=== PATIENT | female | born 1985 | race Caucasian/White ===

== ENCOUNTER 2016-12-21 14:06 | Emergency (ER) | payer OTHER ==
[~2016-12-21] VITALS: Ht 165.1 cm; Wt 70.0 kg
[2016-12-21] MEDS ORDERED: SODIUM CHLORIDE FLUSH 10ML SYR IVF ONE (14:30)
[2016-12-21 14:53] LABS: HEMOGLOBIN 12.6 g/dL (11.7-16.4)
[2016-12-21 15:06] LABS: BLOOD UREA NITROGEN 13 mg/dL (7-18)
[2016-12-21] MEDS ORDERED: RHOGAM FROM BLOOD BANK 1 NOTE EA IM/IV ONE (15:30)
[2016-12-21 16:23] VITALS: BP 111/73
[2016-12-21 18:25] VITALS: BP 116/70
[2016-12-22] MEDS ORDERED: PANT40TA5 PO (10:45)
[2016-12-22] MEDS ORDERED: HYDR-3150 PO ×2 (20:35→20:36)
== END 2016-12-21 19:24 | disposition home or self-care (01) ==
LOC: ED 14:49
DX: O03.9 Complete or unspecified spontaneous abortion without complication (principal); R33.9 Retention of urine, unspecified
CPT/HCPCS: 36415; 76801; 80048; 81003; 82040; 84702; 85025; 86850; 86900; 99285; J2790

== ENCOUNTER 2016-12-22 09:58 | Observation (INO) | payer OTHER ==
[~2016-12-22] VITALS: Ht 165.1 cm; Wt 71.5 kg
[2016-12-22] MEDS ORDERED: PANT40TA5 PO (10:45)
[2016-12-22 11:10] LABS: HEMOGLOBIN 10.9 g/dL (11.7-16.4)
[2016-12-22 11:21] VITALS: BP 117/74
[2016-12-22] MEDS ORDERED: D5%-LACTATED RINGERS 1,000 ML IV SCH (11:30)
[2016-12-22 13:02] LABS: HCG UR OBC PASS
[2016-12-22] MEDS ORDERED: BUPIVACAINE/PF-EPI 0.5% 1:200K ONE (13:58)
[2016-12-22] MEDS ORDERED: FENTANYL PF 250 MCG/5ML ONE (14:00)
[2016-12-22] MEDS ORDERED: ONDANSETRON 2MG/ML, 2ML ONE (14:20)
[2016-12-22] MEDS ORDERED: DEXAMETHASONE 4 MG/ML, 1ML ONE (14:20)
[2016-12-22] MEDS ORDERED: SUCCINYLCHOLINE 20 MG/ML, 10ML ONE (14:20)
[2016-12-22] MEDS ORDERED: METOCLOPRAMIDE 5 MG/ML, 2ML ONE (14:20)
[2016-12-22] MEDS ORDERED: PROPOFOL 10 MG/ML, 20ML ONE (14:20)
[2016-12-22] MEDS ORDERED: ROCURONIUM 10 MG/ML ONE (14:20)
[2016-12-22] MEDS ORDERED: LIDOCAINE 2% 100MG/5ML SYRINGE ONE (14:20)
[2016-12-22] MEDS ORDERED: CEFAZOLIN 1,000 MG ONE (14:20)
[2016-12-22] MEDS ORDERED: BUPIVACAINE/PF-EPI 0.5% 1:200K INFIL ONE (14:58)
[2016-12-22] MEDS ORDERED: ACETAMINOPHEN 650 MG/20.3 ML UDC ONE (15:49)
[2016-12-22] MEDS ORDERED: HYDROmorphone 2 MG/ML, 1ML ONE (15:49)
[2016-12-22] MEDS ORDERED: ACETAMINOPHEN 325 MG TABLET ONE (15:49)
[2016-12-22] MEDS ORDERED: OXYcodone 5 MG/5 ML ORAL.SOL UDC ONE (15:50)
[2016-12-22] MEDS: HYDROmorphone 1 MG/ML, 1ML IV PRN ×4 (15:55→16:32)
[2016-12-22] MEDS ORDERED: PROMETHAZINE 25 MG/ML, 1ML IV PRN (16:00)
[2016-12-22] MEDS ORDERED: FENTANYL PF 100 MCG/2ML IV PRN (16:00)
[2016-12-22] MEDS ORDERED: MIDAZOLAM 1 MG/ML, 2ML IV PRN (16:00)
[2016-12-22] MEDS ORDERED: MEPERIDINE/PF 25MG/0.5ML IVPush PRN (16:00)
[2016-12-22] MEDS ORDERED: ONDANSETRON 2MG/ML, 2ML IVPush PRN (16:00)
[2016-12-22] MEDS ORDERED: OXYcodone 5 MG/5 ML ORAL.SOL UDC PO PRN (16:00)
[2016-12-22] MEDS ORDERED: PROMETHAZINE 25 MG/ML, 1ML IM PRN (18:00)
[2016-12-22] MEDS ORDERED: MORPHINE SULFATE 4 MG/ML, 1ML IVPush PRN (18:00)
[2016-12-22 20:00] VITALS: BP 99/55
[2016-12-22] MEDS ORDERED: HYDR-3150 PO ×2 (20:35→20:36)
== END 2016-12-22 21:30 | disposition home or self-care (01) ==
LOC: 4NOR 10:32 → INTOOBSV 10:32
PROVIDERS: ADMIT Obstetrics & Gynecology Reproductive Endocrinology; ATTEND Obstetrics & Gynecology Reproductive Endocrinology
DX: O00.10 Tubal pregnancy without intrauterine pregnancy (principal); N73.6 Female pelvic peritoneal adhesions (postinfective)
CPT/HCPCS: 36415; 59151; 81025; 85025; 88305; 96372; G0378; J0330; J0690; J1100; J1170; J2405; J2550; J2704; J2765; J3010; J7121

== ENCOUNTER → 2020-06-23 | Outpatient (CLI) | payer OTHER ==
[~2020-06-23] MED LIST: FEXO60TA24 PO; HYDR-3150 PO; IBUP-1222 PO; OXYC-302 PO; PANT40TA6 PO; PREN1TAB60 PO; SERT50TA PO
== END | disposition home or self-care (01) ==
LOC: STAR 08:58
PROVIDERS: ATTEND Anesthesiology
DX: Z01.812 Encounter for preprocedural laboratory examination (principal); Z20.828 Contact with and (suspected) exposure to other viral communicable diseases
CPT/HCPCS: 36415; 87635

== ENCOUNTER 2020-06-29 02:14 | Inpatient (IN) | payer OTHER ==
[~2020-06-29] VITALS: Ht 165.1 cm; Wt 109.0 kg
[2020-06-29] MEDS ORDERED: SODIUM CITRATE/CITRIC ACID 30 ML UDC PO ONE (10:30)
[2020-06-29] MEDS ORDERED: METOCLOPRAMIDE 5 MG/ML, 2ML IV ONE (10:30)
[2020-06-29] MEDS ORDERED: LACTATED RINGERS 1,000 ML IVBOLUS ONE (10:30)
[2020-06-29 10:51] VITALS: BP 131/80
[2020-06-29] MEDS ORDERED: morphine SULFATE/PF 0.5 MG/ML, 10ML ONE (10:58)
[2020-06-29] MEDS ORDERED: PLEASE ENTER HEIGHT AND WEIGHT MC SCH (11:00)
[2020-06-29 11:05] LABS: BASOPHILS % (AUTO) 0 % (0-1); EOSINOPHILS % (AUTO) 0 % (1-7); LYMPHOCYTES % (AUTO) 23 % (22-44); MEAN CORPUSCULAR HEMOGLOBIN 31.3 pg (27.0-34.8); MEAN CORPUSCULAR HGB CONC 34.3 g/dL (32.4-35.8); MEAN PLATELET VOLUME 9.7 fL (7.4-10.4); MONOCYTES % (AUTO) 9 % (2-9); NEUTROPHILS % (AUTO) 68 % (42-75); PLATELET COUNT 240 x10^3/uL (130-400); RED CELL DISTRIBUTION WIDTH 13.3 % (9.6-15.2)
[2020-06-29 11:06] LABS: MD NO
[2020-06-29] MEDS ORDERED: EPINEPHRINE 1 MG/ML, 1ML ONE (11:09)
[2020-06-29] MEDS ORDERED: METOCLOPRAMIDE 5 MG/ML, 2ML ONE (11:18)
[2020-06-29] MEDS ORDERED: NEWBORN KIT ONE (11:45)
[2020-06-29] MEDS ORDERED: OXYTOCIN 30U/ 0.9% NaCL 500ML 500 ML ONE (11:45)
[2020-06-29] MEDS ORDERED: PHENYLEPHRINE 10 MG/ML ONE (12:29)
[2020-06-29] MEDS ORDERED: EPHEDRINE 50 MG/ML, 1ML ONE (12:29)
[2020-06-29] MEDS ORDERED: OXYTOCIN 10 UNITS/ML, 1ML ONE (12:29)
[2020-06-29] MEDS ORDERED: ONDANSETRON 2MG/ML, 2ML ONE (12:29)
[2020-06-29] MEDS ORDERED: WATER-INJECTION,STERILE 10 ML IV ONE (12:29)
[2020-06-29] MEDS ORDERED: CEFAZOLIN 1,000 MG ONE (12:29)
[2020-06-29] MEDS ORDERED: MISOPROSTOL 200 MCG TABLET PR PRN (13:30)
[2020-06-29] MEDS ORDERED: ONDANSETRON 2MG/ML, 2ML IV PRN (13:30)
[2020-06-29] MEDS ORDERED: HYDROcodone/APAP 5/325 TABLET PO PRN ×2 (13:30)
[2020-06-29] MEDS ORDERED: MEPERIDINE/PF 50 MG/ML IVPush PRN (13:30)
[2020-06-29] MEDS ORDERED: METHYLERGONOVINE 0.2 MG/ML IM PRN (13:30)
[2020-06-29] MEDS ORDERED: MORPHINE SULFATE 4 MG/ML, 1ML IVPush PRN (13:30)
[2020-06-29] MEDS ORDERED: LACTATED RINGERS 1,000 ML IV SCH (13:30)
[2020-06-29] MEDS ORDERED: OMEG1CAP6 PO (13:30)
[2020-06-29] MEDS ORDERED: morphine SULFATE 10 MG/ML, 1ML IVPush PRN (13:30)
[2020-06-29] MEDS: LACTATED RINGERS 1,000 ML IV SCH ×2 (13:30→21:30)
[2020-06-29] MEDS ORDERED: MEPERIDINE/PF 100 MG/ML IVPush PRN (13:30)
[2020-06-29] MEDS ORDERED: KETOROLAC 30 MG/1 ML IV PRN (13:30)
[2020-06-29] MEDS ORDERED: ACETAMINOPHEN 325 MG TABLET PO PRN (13:30)
[2020-06-29] MEDS ORDERED: METOCLOPRAMIDE 5 MG/ML, 2ML IV PRN (13:30)
[2020-06-29] MEDS ORDERED: CROM13SP5 NS (13:32)
[2020-06-29] MEDS ORDERED: LORA10CA PO (13:32)
[2020-06-29] MEDS ORDERED: MISOPROSTOL 200 MCG TABLET ONE ×2 (13:52→14:02)
[2020-06-29] MEDS: OXYTOCIN 30U/ 0.9% NaCL 500ML 500 ML IV SCH ×2 (14:49→23:30)
[2020-06-29 15:30] VITALS: BP 148/90
[2020-06-29] MEDS: KETOROLAC 30 MG/1 ML IV SCH ×2 (16:14→22:11)
[2020-06-29 20:00] VITALS: BP 136/85
[2020-06-29 21:20] LABS: BASOPHILS % (AUTO) 0 % (0-1); EOSINOPHILS % (AUTO) 0 % (1-7); LYMPHOCYTES % (AUTO) 18 % (22-44); MEAN CORPUSCULAR HEMOGLOBIN 30.7 pg (27.0-34.8); MEAN CORPUSCULAR HGB CONC 33.2 g/dL (32.4-35.8); MEAN PLATELET VOLUME 10.1 fL (7.4-10.4); MONOCYTES % (AUTO) 7 % (2-9); NEUTROPHILS % (AUTO) 75 % (42-75); PLATELET COUNT 203 x10^3/uL (130-400); RED BLOOD COUNT 3.34 x10^6/uL (3.82-5.3); RED CELL DISTRIBUTION WIDTH 13.5 % (9.6-15.2)
[2020-06-29 21:23] LABS: MD NO
[2020-06-30] VITALS: BP 120/73
[2020-06-30] MEDS ORDERED: RHOGAM FROM BLOOD BANK 1 NOTE EA IM/IV ONE (01:30)
[2020-06-30 04:00] VITALS: BP 124/82
[2020-06-30] MEDS: KETOROLAC 30 MG/1 ML IV SCH ×2 (04:14→10:14)
[2020-06-30] MEDS: LACTATED RINGERS 1,000 ML IV SCH (05:30)
[2020-06-30 08:51] VITALS: BP 126/79
[2020-06-30] MEDS: PRENATAL VIT/IRON/FA 1 EACH TABLET PO SCH (10:14)
[2020-06-30] MEDS: DOCUSATE 100 MG CAPSULE PO PRN (10:14)
[2020-06-30 11:55] VITALS: BP 132/81
[2020-06-30] MEDS: SERTRALINE 100MG TABLET PO SCH (11:59)
[2020-06-30] MEDS: IBUPROFEN 600 MG TABLET PO PRN ×2 (16:15→22:23)
[2020-06-30 19:00] VITALS: BP 138/76
[2020-06-30] MEDS: SIMETHICONE 80 MG CHEW TAB PO PRN (22:23)
[2020-07-01] MEDS: IBUPROFEN 600 MG TABLET PO PRN ×4 (04:29→22:29)
[2020-07-01] MEDS: PRENATAL VIT/IRON/FA 1 EACH TABLET PO SCH (07:48)
[2020-07-01] MEDS: SIMETHICONE 80 MG CHEW TAB PO PRN (07:48)
[2020-07-01] MEDS: SERTRALINE 100MG TABLET PO SCH (07:48)
[2020-07-01] MEDS: DOCUSATE 100 MG CAPSULE PO PRN ×2 (07:48→22:29)
[2020-07-01 08:40] VITALS: BP 121/75
[2020-07-01] MEDS ORDERED: IBUP-1222 PO (15:47)
[2020-07-01] MEDS ORDERED: SERT100T PO (15:47)
[2020-07-01] MEDS: CALCIUM CARBONATE 500 MG TAB.CHEW PO PRN (16:23)
[2020-07-01 20:00] VITALS: BP 158/79
[2020-07-02] MEDS: IBUPROFEN 600 MG TABLET PO PRN ×2 (05:19→11:41)
[2020-07-02] MEDS: DOCUSATE 100 MG CAPSULE PO PRN (07:22)
[2020-07-02] MEDS: PRENATAL VIT/IRON/FA 1 EACH TABLET PO SCH (07:22)
[2020-07-02] MEDS: SERTRALINE 100MG TABLET PO SCH (07:22)
[2020-07-02 07:27] LABS: BASOPHILS % (AUTO) 1 % (0-1); EOSINOPHILS % (AUTO) 2 % (1-7); LYMPHOCYTES % (AUTO) 24 % (22-44); MEAN CORPUSCULAR HEMOGLOBIN 31.5 pg (27.0-34.8); MEAN CORPUSCULAR HGB CONC 33.6 g/dL (32.4-35.8); MEAN PLATELET VOLUME 9.3 fL (7.4-10.4); MONOCYTES % (AUTO) 9 % (2-9); NEUTROPHILS % (AUTO) 64 % (42-75); PLATELET COUNT 232 x10^3/uL (130-400); RED BLOOD COUNT 3.04 x10^6/uL (3.82-5.3); RED CELL DISTRIBUTION WIDTH 13.6 % (9.6-15.2)
[2020-07-02 07:34] LABS: MD NO
[2020-07-02 07:47] LABS: ALANINE AMINOTRANSFERASE 18 U/L (12-78); ALBUMIN 2.4 g/dL (3.4-5.0); ANION GAP 7 mmol/L (5-15); CALCIUM 8.3 mg/dL (8.5-10.1); CHLORIDE 110 mmol/L (98-107); CREATININE 0.71 mg/dL (0.55-1.02)
[2020-07-02 07:49] LABS: ALKALINE PHOSPHATASE 70 U/L (45-117); BILIRUBIN,TOTAL 0.2 mg/dL (0.2-1.0); TOTAL PROTEIN 6.4 g/dL (6.4-8.2)
[2020-07-02 08:17] VITALS: BP 135/83
[2020-07-02] MEDS: CALCIUM CARBONATE 500 MG TAB.CHEW PO PRN (09:25)
[2020-07-02 12:53] VITALS: BP 150/88
[2020-07-02 14:56] VITALS: BP 157/83
== END 2020-07-02 16:30 | disposition home or self-care (01) | DRG 784 ==
LOC: LDIP 10:08 → 2NW 15:23
PROVIDERS: ADMIT Obstetrics & Gynecology; ATTEND Obstetrics & Gynecology
PROC: 10D00Z1 Extraction of Products of Conception, Low, Open Approach (ICD-10-PCS; principal; 2020-06-29)
PROC: 0UB50ZZ Excision of Right Fallopian Tube, Open Approach (ICD-10-PCS; 2020-06-29)
DX: O34.211 Maternal care for low transverse scar from previous cesarean delivery (principal); O99.354 Diseases of the nervous system complicating childbirth; G89.18 Other acute postprocedural pain; O99.344 Other mental disorders complicating childbirth; G43.909 Migraine, unspecified, not intractable, without status migrainosus; F41.0 Panic disorder [episodic paroxysmal anxiety]; F32.9 Major depressive disorder, single episode, unspecified; Z87.59 Personal history of other complications of pregnancy, childbirth and the puerperium; Z86.61 Personal history of infections of the central nervous system; Z82.49 Family history of ischemic heart disease and other diseases of the circulatory system; Z3A.39 39 weeks gestation of pregnancy; Z37.0 Single live birth; Z30.2 Encounter for sterilization; Z23 Encounter for immunization
CPT/HCPCS: 36415; 80053; 85025; 85461; 86592; 86762; 86850; 86900; 88302; G0378; J0171; J0690; J1885; J2274; J2405; J2790; J2370; J2590; J2765; J7120

== ENCOUNTER 2020-07-04 17:24 | Emergency (ER) | payer OTHER ==
[~2020-07-04] VITALS: Ht 165.1 cm; Wt 97.5 kg
[~2020-07-04 17:24] MED LIST changes: +CROM13SP5 NS; +LORA10CA PO; +OMEG1CAP6 PO; +SERT100T PO
--- NOTE | 2020-07-04 18:12 | NUR ---
LAB AND RAD IN ROOM.
--- NOTE | 2020-07-04 18:26 | NUR ---
MANUAL BP OBTAINED 150/85. PT RESTING ON GURNEY W/ CALL LIGHT IN REACH AND SIDE RAILS UPX2. RESP EVEN AND UNLABORED, CHAYO.
--- NOTE | 2020-07-04 18:31 | NUR ---
PIERCING SPECIALIST IN ROOM FOR EKG.
[2020-07-04 18:32] LABS: BASOPHILS % (AUTO) 0 % (0-1); EOSINOPHILS % (AUTO) 1 % (1-7); LYMPHOCYTES % (AUTO) 25 % (22-44); MEAN CORPUSCULAR HEMOGLOBIN 30.9 pg (27.0-34.8); MEAN CORPUSCULAR HGB CONC 33.2 g/dL (32.4-35.8); MEAN PLATELET VOLUME 8.2 fL (7.4-10.4); MONOCYTES % (AUTO) 9 % (2-9); NEUTROPHILS % (AUTO) 65 % (42-75); PLATELET COUNT 394 x10^3/uL (130-400); RED CELL DISTRIBUTION WIDTH 13.7 % (9.6-15.2)
[2020-07-04 18:38] LABS: ALBUMIN 2.8 g/dL (3.4-5.0); ANION GAP 7 mmol/L (5-15); CALCIUM 8.6 mg/dL (8.5-10.1); CHLORIDE 108 mmol/L (98-107)
[2020-07-04 18:39] LABS: MD NO
[2020-07-04 18:40] LABS: CREATININE 0.81 mg/dL (0.55-1.02)
--- NOTE | 2020-07-04 18:46 | NUR ---
PT AMBULATED TO THE BR W/ A STEADY GAIT. URINE COLLECTED AND SENT TO LAB.
--- NOTE | 2020-07-04 18:55 | NUR ---
REPORT GIVEN TO BONG TORRES. PT RESTING ON GURNEY W/ CALL LIGHT IN REACH, VSS, NADN. AWAITING UA RESULTS.
[2020-07-04 19:12] LABS: MICROSCOPIC INDICATED
[2020-07-04] MEDS ORDERED: HYDROcodone/APAP 5/325 TABLET PO ONE (19:30)
[2020-07-04 20:31] VITALS: BP 144/88
[2020-07-04 20:31] LABS: ALANINE AMINOTRANSFERASE 30 U/L (12-78); ALBUMIN 2.8 g/dL (3.4-5.0); ANION GAP 7 mmol/L (5-15); CALCIUM 8.4 mg/dL (8.5-10.1); CHLORIDE 108 mmol/L (98-107); CREATININE 0.73 mg/dL (0.55-1.02)
[2020-07-04 20:33] LABS: ALKALINE PHOSPHATASE 83 U/L (45-117); BILIRUBIN,TOTAL 0.3 mg/dL (0.2-1.0)
[2020-07-04] MEDS ORDERED: METOPROLOL TARTRATE 50 MG TAB ONE (20:56)
[2020-07-04] MEDS ORDERED: METOPROLOL TARTRATE 50 MG TAB PO ONE (21:00)
== END 2020-07-04 21:05 | disposition home or self-care (01) ==
LOC: ED 20:30
DX: I10 Essential (primary) hypertension (principal); R07.9 Chest pain, unspecified; R94.31 Abnormal electrocardiogram [ECG] [EKG]
CPT/HCPCS: 36415; 71045; 80048; 80053; 81001; 82040; 85025; 87086; 93005; 99285